=== PATIENT | male | born 1995 | race Two or more races ===

== ENCOUNTER 2018-04-18 10:50 | Emergency (ER) | payer MEDICAID, OTHER ==
[~2018-04-18] VITALS: Ht 193 cm; Wt 86.2 kg
[~2018-04-18 10:50] MED LIST: BENZ2TAB2; BUPRTAB3; RISP3TAB44
[2018-04-18 12:13] LABS: Basophils # (auto) 0 uL; Basophils % (auto) 0.3 % (0.0-2.0); Eosinophils # (auto) 0.1 uL; Hematocrit 46.7 % (41.0-53.0); Hemoglobin 15.9 g/dL (13.5-17.5); Lymphocytes # (auto) 1.3 uL; Lymphocytes % (auto) 22.7 % (10.0-50.0); Mean Corpuscular Hemoglobin 30.9 pg (28.0-32.0); Mean Corpuscular Hgb Conc. 34.1 g/dL (32.0-36.0); Mean Corpuscular Volume 90.5 fL (80.0-100.0); Monocytes # (auto) 0.3 uL; Monocytes % (auto) 5.4 % (0.0-12.0); Neutrophils % (auto) 70.6 % (37.0-80.0); Nucleated Red Blood Cells % 0.1 %; Platelet Count (auto) 186 10^3/uL (140-450); Red Blood Cells 5.16 10^6/uL (4.5-5.90); Red Cell Distribution Width 14.1 % (11.8-14.3); White Blood Cell 5.7 10^3/uL (4.4-10.8)
[2018-04-18 12:56] LABS: Alanine Aminotransferase 36 U/L (16-61); Albumin 4.2 g/dL (3.4-5.0); Alkaline Phosphatase 52 U/L (45-117); Anion Gap 9 (5-15); Aspartate Aminotransferase 16 U/L (15-37); BUN/Creatinine Ratio 11.7; Bilirubin, Total 0.5 mg/dL (0.2-1.0); Blood Alcohol < 3.0 mg/dL (0-5); Blood Urea Nitrogen 11 mg/dL (7-18); Calcium 8.9 mg/dL (8.5-10.1); Carbon Dioxide 27 mmol/L (21-32); Chloride 103 mmol/L (98-107); GFR African American 129 mL/min; GFR Non-African American 107 mL/min; Glucose 93 mg/dL (74-106); Potassium 4.3 mmol/L (3.5-5.1); Sodium 139 mmol/L (136-145); Total Protein 8.1 g/dL (6.4-8.2)
[2018-04-18 13:36] LABS: Acetaminophen < 2.0 ug/mL (10-30); Salicylate < 1.7 mg/dL (2.8-20.0)
[2018-04-18 14:30] LABS: Alcohol, Urine < 3.0 mg/dL (0-5); Amphetamine Screen, Urine NEGATIVE (NEGATIVE); Barbiturate Scree,Urine NEGATIVE (NEGATIVE); Benzodiazephine Screen, Urine NEGATIVE (NEGATIVE); Cannabinoid Screen, Urine NEGATIVE (NEGATIVE); Cocaine Screen, Urine NEGATIVE (NEGATIVE); Opiate Scree,Urine NEGATIVE (NEGATIVE); Phencyclidine Screen, Urine NEGATIVE (NEGATIVE)
[2018-04-18 14:33] LABS: Urine Bacteria NONE SEEN /hpf (None Seen); Urine Blood Negative /uL (Negative); Urine Specific Gravity 1.018 (1.001-1.035); Urine WBC 1 /hpf (0 - 3)
[2018-04-18] MEDS ORDERED: LORazepam 0.5 MG TAB PO ONE (17:00)
[2018-04-19] MEDS ORDERED: LORazepam 0.5 MG TAB PO ONE (16:45)
[2018-04-19] MEDS ORDERED: SERTRALINE HCL 50 MG TAB PO ONE (17:00)
[2018-04-20] MEDS: LORazepam 0.5 MG TAB PO SCH ×3 (02:00→22:00)
[2018-04-20] MEDS: SERTRALINE HCL 50 MG TAB PO SCH (11:45)
[2018-04-20] MEDS ORDERED: HALOPERIDOL LACTATE 5 MG/ML INJ VIAL ONE (12:34)
[2018-04-20] MEDS ORDERED: HALOPERIDOL LACTATE 5 MG/ML INJ VIAL IM ONE (12:45)
[2018-04-20 23:00] LABS: Basophils # (auto) 0 uL; Basophils % (auto) 0.4 % (0.0-2.0); Eosinophils # (auto) 0.1 uL; Eosinophils % (auto) 1.3 % (0.0-7.0); Hemoglobin 15.3 g/dL (13.5-17.5); Lymphocytes # (auto) 2.4 uL; Lymphocytes % (auto) 34.9 % (10.0-50.0); Mean Corpuscular Hemoglobin 30.6 pg (28.0-32.0); Mean Corpuscular Hgb Conc. 33.9 g/dL (32.0-36.0); Mean Corpuscular Volume 90.2 fL (80.0-100.0); Monocytes # (auto) 0.4 uL; Monocytes % (auto) 6.2 % (0.0-12.0); Neutrophils # (auto) 3.8 uL; Neutrophils % (auto) 57.2 % (37.0-80.0); Nucleated Red Blood Cells % 0.1 %; Platelet Count (auto) 172 10^3/uL (140-450); Red Blood Cells 4.99 10^6/uL (4.5-5.90); Red Cell Distribution Width 14.3 % (11.8-14.3); White Blood Cell 6.7 10^3/uL (4.4-10.8)
[2018-04-20 23:20] LABS: Alanine Aminotransferase 39 U/L (16-61); Albumin 3.8 g/dL (3.4-5.0); Anion Gap 7 (5-15); Aspartate Aminotransferase 26 U/L (15-37); BUN/Creatinine Ratio 12.1; Blood Urea Nitrogen 13 mg/dL (7-18); Calcium 8.2 mg/dL (8.5-10.1); Carbon Dioxide 29 mmol/L (21-32); Chloride 105 mmol/L (98-107); GFR African American 111 mL/min; GFR Non-African American 92 mL/min; Glucose 85 mg/dL (74-106); Potassium 4.2 mmol/L (3.5-5.1); Sodium 141 mmol/L (136-145)
[2018-04-20 23:25] LABS: Alkaline Phosphatase 46 U/L (45-117); Bilirubin, Total 0.7 mg/dL (0.2-1.0); Total Protein 7.4 g/dL (6.4-8.2)
[2018-04-20 23:42] LABS: Basophils # (auto) 0 uL; Basophils % (auto) 0.2 % (0.0-2.0); Eosinophils # (auto) 0.1 uL; Eosinophils % (auto) 1.4 % (0.0-7.0); Hematocrit 44.4 % (41.0-53.0); Lymphocytes # (auto) 2.5 uL; Lymphocytes % (auto) 37.5 % (10.0-50.0); Mean Corpuscular Hemoglobin 30.7 pg (28.0-32.0); Mean Corpuscular Hgb Conc. 33.9 g/dL (32.0-36.0); Mean Corpuscular Volume 90.5 fL (80.0-100.0); Monocytes # (auto) 0.4 uL; Monocytes % (auto) 6.4 % (0.0-12.0); Neutrophils # (auto) 3.6 uL; Neutrophils % (auto) 54.5 % (37.0-80.0); Nucleated Red Blood Cells % 0.2 %; Platelet Count (auto) 170 10^3/uL (140-450); Red Cell Distribution Width 14.2 % (11.8-14.3); White Blood Cell 6.6 10^3/uL (4.4-10.8)
[2018-04-20 23:59] LABS: Alanine Aminotransferase 40 U/L (16-61); Albumin 3.7 g/dL (3.4-5.0); Anion Gap 9 (5-15); Aspartate Aminotransferase 29 U/L (15-37); BUN/Creatinine Ratio 14.4; Blood Urea Nitrogen 13 mg/dL (7-18); Calcium 8.2 mg/dL (8.5-10.1); Carbon Dioxide 27 mmol/L (21-32); Chloride 105 mmol/L (98-107); GFR African American 136 mL/min; GFR Non-African American 112 mL/min; Glucose 81 mg/dL (74-106); Potassium 3.8 mmol/L (3.5-5.1); Sodium 141 mmol/L (136-145)
[2018-04-21 00:03] LABS: Alkaline Phosphatase 47 U/L (45-117); Bilirubin, Total 0.7 mg/dL (0.2-1.0); Total Protein 7.3 g/dL (6.4-8.2)
[2018-04-21] MEDS: LORazepam 0.5 MG TAB PO SCH ×2 (10:59→22:00)
[2018-04-21] MEDS: SERTRALINE HCL 50 MG TAB PO SCH (10:59)
[2018-04-21] MEDS ORDERED: LORazepam 0.5 MG TAB ONE ×2 (13:38→22:18)
[2018-04-21] MEDS ORDERED: LORazepam 0.5 MG TAB PO ONE (14:00)
[2018-04-22] MEDS: SERTRALINE HCL 50 MG TAB PO SCH (13:04)
[2018-04-22] MEDS: LORazepam 0.5 MG TAB PO SCH ×2 (13:04→22:00)
[2018-04-23] MEDS: LORazepam 0.5 MG TAB PO SCH (11:57)
[2018-04-23] MEDS: SERTRALINE HCL 50 MG TAB PO SCH (11:57)
[2018-04-23 14:30] VITALS: BP 115/64
== END 2018-04-23 14:51 | disposition home or self-care (01) ==
LOC: ER 10:50 → EDBD 10:50 → EDSEX 10:50 → ER 04-23 14:51
DX: R45.851 Suicidal ideations (principal); F32.9 Major depressive disorder, single episode, unspecified; F41.9 Anxiety disorder, unspecified
CPT/HCPCS: 36415; 80053; 80307; 80320; 80329; 81001; 84484; 85025; 93005

== ENCOUNTER 2018-04-26 10:58 | Emergency (ER) | payer OTHER ==
[~2018-04-26] VITALS: Ht 193 cm; Wt 90.7 kg
[2018-04-26] MEDS ORDERED: LITHIUM CARBONATE 300 MG TAB ONE (11:03)
[2018-04-26] MEDS ORDERED: LITHIUM CARBONATE 300 MG TAB PO ONE (11:15)
[2018-04-26 13:11] LABS: Alcohol, Urine < 3.0 mg/dL (0-5); Amphetamine Screen, Urine NEGATIVE (NEGATIVE); Barbiturate Scree,Urine NEGATIVE (NEGATIVE); Benzodiazephine Screen, Urine NEGATIVE (NEGATIVE); Cannabinoid Screen, Urine NEGATIVE (NEGATIVE); Cocaine Screen, Urine NEGATIVE (NEGATIVE); Opiate Scree,Urine NEGATIVE (NEGATIVE); Phencyclidine Screen, Urine NEGATIVE (NEGATIVE)
[2018-04-26 13:34] VITALS: BP 120/78
[2018-04-26 13:53] LABS: Urine Amorphous Crystal MANY /hpf (None Seen); Urine Bacteria NONE SEEN /hpf (None Seen); Urine Blood TRACE /uL (Negative); Urine Specific Gravity 1.021 (1.001-1.035); Urine WBC 2 /hpf (0 - 3)
== END 2018-04-26 13:40 | disposition home or self-care (01) ==
LOC: EDUNIT# 10:58 → ER 10:58 → EDBD 10:58 → ER 13:40
DX: R10.32 Left lower quadrant pain (principal); F31.9 Bipolar disorder, unspecified; F20.9 Schizophrenia, unspecified
CPT/HCPCS: 80307; 81001

== ENCOUNTER → 2020-01-26 | Emergency (ER) | payer SELFPAY ==
[~2020-01-26] VITALS: Ht 180.3 cm; Wt 81.6 kg
[2020-01-26 04:23] VITALS: BP 138/84
== END | disposition home or self-care (01) ==
LOC: EDUNIT# 03:20 → EDBD 03:29 → ER 03:29
DX: S52.532A Colles' fracture of left radius, initial encounter for closed fracture (principal); F20.9 Schizophrenia, unspecified; V28.4XXA Motorcycle driver injured in noncollision transport accident in traffic accident, initial encounter; Y93.89 Activity, other specified; Y92.89 Other specified places as the place of occurrence of the external cause; Y99.8 Other external cause status
CPT/HCPCS: 29125; 73110

== ENCOUNTER 2020-01-31 07:54 | Emergency (ER) | payer SELFPAY ==
[~2020-01-31] VITALS: Ht 190.5 cm; Wt 90.7 kg
[2020-01-31 08:01] VITALS: BP 122/70
[2020-01-31] MEDS ORDERED: KETOROLAC TROMETH 60MG/2ML VIAL IM ONE (08:45)
== END 2020-01-31 08:56 | disposition home or self-care (01) ==
LOC: ER 07:54 → EDUNIT# 07:54 → EDBD 07:54 → ER 08:56
DX: S52.502A Unspecified fracture of the lower end of left radius, initial encounter for closed fracture (principal); V18.4XXA Pedal cycle driver injured in noncollision transport accident in traffic accident, initial encounter; Y93.89 Activity, other specified; Y92.9 Unspecified place or not applicable; Y99.8 Other external cause status
CPT/HCPCS: 73110; 96372; 99283; J1885